=== PATIENT | female | born 1990 | race Caucasian/White ===

== ENCOUNTER → 2016-05-10 | Outpatient (CLI) | payer OTHER | LOC: COL.PUL 10:00 | DX: Z53.9 Procedure and treatment not carried out, unspecified reason (principal) ==

== ENCOUNTER → 2016-05-31 | Outpatient (CLI) | payer OTHER | LOC: COL.PUL 09:58 | DX: J45.909 Unspecified asthma, uncomplicated (principal) | CPT/HCPCS: J7674 ==

== ENCOUNTER 2018-04-29 21:19 | Emergency (ER) | payer OTHER ==
[~2018-04-29] VITALS: Ht 157.5 cm; Wt 68.2 kg
[2018-04-29 21:27] VITALS: TEMP 98.3
[2018-04-29 22:23] LABS: BASO % 0.4 % (0.0-2.0); EOS # 0.2 (0.0-0.7); EOS % 1.8 % (0-4.0); HEMOGLOBIN 12.2 g/dl (12.5-16.0); LYMPH # 1.3 (1.2-3.4); LYMPH % 16.3 % (20.0-51.0); MEAN CELL VOLUME 85 fl (80.0-100.0); MEAN CORPUSCULAR HEMOGLOBIN 28 pg (27.0-31.0); MEAN CORPUSCULAR HGB CONC 33 g/dl (33.0-37.0); MEAN PLATELET VOLUME 11.1 fl (7.4-10.4); MONO # 0.7 (0.1-0.6); MONO % 8.3 % (1.7-9.3); PLATELET COUNT 206 K/mm3 (130-400); RED BLOOD COUNT 4.31 M/mm3 (4.10-5.30); REDCELL DISTRIBUTION WIDTH-CV 13.2 % (11.5-14.5)
[2018-04-29 22:24] LABS: HEMATOCRIT 36.5 % (37.0-47.0)
[2018-04-29 22:31] LABS: ALANINE AMINOTRANSFERASE 22 U/L (9-52); ALBUMIN 4.4 gm/dL (3.5-5.0); ALKALINE PHOSPHATASE 44 U/L (50-136); ANION GAP 9 mmol/L (7-16); AST,SGOT 25 U/L (15-37); BILIRUBIN,TOTAL 0.5 mg/dL (0.0-1.0); BLOOD UREA NITROGEN 15 mg/dL (7-17); CALCIUM 9.6 mg/dL (8.4-10.2); CARBON DIOXIDE 27 mmol/L (22-30); CHLORIDE 100 mmol/L (98-107); CREATININE, serum 0.87 mg/dL (0.52-1.25); GLUCOSE 89 mg/dL (74-106); POTASSIUM 3.3 mmol/L (3.4-5.0); SODIUM 136 mmol/L (137-145); TOTAL PROTEIN 7.4 gm/dL (6.4-8.2)
[2018-04-29 22:33] LABS: COLLECTION METHOD CLEAN CATCH
[2018-04-29 22:41] LABS: MUCOUS Present /lpf; PH 6 (5-8); SQUAMOUS EPITHELIAL 0-2 /hpf; URINE APPEARANCE Hazy; URINE BACTERIA Rare /hpf; URINE BILIRUBIN Negative (NEGATIVE); URINE BLOOD Negative (NEGATIVE); URINE COLOR Yellow; URINE GLUCOSE Negative (NEGATIVE); URINE KETONE Trace (NEGATIVE); URINE LEUKOCYTE ESTERASE Negative (NEGATIVE); URINE NITRATE Negative (NEGATIVE); URINE PROTEIN(semi-quant) Negative (NEGATIVE); URINE UROBILINOGEN Negative (NEGATIVE)
[2018-04-29] MEDS ORDERED: ABILIFY5 MG PO (22:45)
[2018-04-29] MEDS ORDERED: LOTENSIN20 MG PO (22:46)
[2018-04-29 22:47] LABS: ACETAMINOPHEN < 10 ug/mL (10-30); ALCOHOL(ethanol),MEDICAL < 10 mg/dL; SALICYLATE < 1.0 mg/dL
[2018-04-29 22:52] LABS: TRICYCLIC ANTIDEPRESS URINE NEGATIVE
[2018-04-29] MEDS ORDERED: WELLBUTRIN XL300 M1 PO (23:01)
[2018-04-30] MEDS ORDERED: ZYRTEC 10MG10 MG PO (01:31)
[2018-04-30] MEDS ORDERED: CYMBALTA 60MG60 MG PO (01:31)
[2018-04-30] MEDS ORDERED: SINGULAIR 110 MG/TAB PO (01:31)
[2018-04-30 15:05] VITALS: BP 149/86; PULSE 94
== END 2018-04-30 15:12 ==
LOC: COL.ER 21:19
PROVIDERS: Emergency Medicine
DX: T43.222A Poisoning by selective serotonin reuptake inhibitors, intentional self-harm, initial encounter (principal); F32.9 Major depressive disorder, single episode, unspecified; F41.9 Anxiety disorder, unspecified

== ENCOUNTER → 2018-08-26 | Outpatient (CLI) | payer OTHER ==
[~2018-08-26] MED LIST: ABILIFY5 MG PO; CYMBALTA 60MG60 MG PO; LOTENSIN20 MG PO; SINGULAIR 110 MG/TAB PO; WELLBUTRIN XL300 M1 PO; ZYRTEC 10MG10 MG PO
== END ==
LOC: BHSO 12:56
DX: F33.41 Major depressive disorder, recurrent, in partial remission (principal)